=== PATIENT | female | born 2000 | race Native Hawaiian/Other Pacific Islander ===

== ENCOUNTER 2022-03-09 18:42 | Emergency (ER) | payer OTHER ==
[~2022-03-09] VITALS: Ht 160 cm; Wt 81.6 kg
[2022-03-09 20:22] VITALS: BP 133/67; TEMP 98.4
== END 2022-03-09 20:22 | disposition home or self-care (01) ==
LOC: ED 18:42
DX: L25.9 Unspecified contact dermatitis, unspecified cause (principal)
CPT/HCPCS: 99283